=== PATIENT | male | born 1970 | race African-American/Black ===

== ENCOUNTER 2024-10-15 15:43 | Emergency (ER) | payer OTHER, SELFPAY ==
[2024-10-15] VITALS (19 sets, daily range): BP systolic 110–177; BP diastolic 60–89; PULSE 78–104; RESP 20–54; TEMP 37.6–38.6; O2SAT 93–98; BMI 35.2
--- NOTE | 2024-10-15 16:28 | DI.RAD.S_ITS ---
PROCEDURE: XR FOOT LT MIN 3V INDICATIONS: diabetic wound TECHNIQUE: 3 views of the foot were acquired. COMPARISON: None. FINDINGS: Bones: No fractures or dislocations. No suspicious bony lesions. 1st MTP degenerative change, hallux valgus and bunion. No plain film evidence of osteomyelitis. Soft tissues: No tibiotalar joint effusion. Achilles tendon appears normal. Great toe soft tissue swelling centered at the MTP joint with possible associated ulceration in that location. IMPRESSION: Ulceration, soft tissue swelling. No plain film evidence of osteomyelitis. Dictated by: Aditya Austin M.D. on 10/15/2024 at 17:06 Approved by: Aditya Austin M.D. on 10/15/2024 at 17:07
[2024-10-15 16:44] LABS: Add Manual Diff / Slide Review NO; Basophils Absolute Auto 0 /uL (0-100); Basophils Percent Auto 0.2 % (0-2); Eosinophils Absolute Auto 0 /uL (0-450); Eosinophils Percent Auto 0.1 % (2-4); Hematocrit 35.6 % (41-53); Hemoglobin 12.1 g/dL (13.5-17.5); Lymphocytes Absolute Auto 600 /uL (1100-4500); Lymphocytes Percent Auto 4.5 % (25-40); Mean Corpuscular HGB Conc 34.1 % (30-36); Mean Corpuscular Hemoglobin 31.5 PG (26-34); Mean Corpuscular Volume 92.5 fL (80-100); Monocytes Absolute Auto 1500 /uL (0-900); Monocytes Percent Auto 10.9 % (3-14); Neutrophils Absolute Auto 12000 /uL (1500-7000); Neutrophils Percent Auto 84.3 % (50-75); Platelet Count 126 X10^3/uL (150-400); Red Blood Cell Count 3.85 X10^6/uL (4.5-5.9); Red Cell Distribution Width 12.3 % (11.6-14.8); White Blood Cell Count 14.3 X10^3/uL (4.5-11.0)
[2024-10-15] MEDS: SODIUM CHLORIDE 0.9% 1,000 ML 1000 ML IV (16:47)
[2024-10-15] MEDS: ONDANSETRON 4 MG/2 ML INJ IV (16:47)
[2024-10-15] MEDS: cefTRIAXone 2,000 MG in SODIUM CHLORIDE 0.9% 100 ML 200 MG IV (16:48)
[2024-10-15] MEDS: metroNIDAZOLE 500 MG/100 ML PIGGYBACK 100 MG IV (16:48)
[2024-10-15 16:55] LABS: HEMOLYSIS < 15 (0-50)
[2024-10-15 17:00] LABS: Alanine Aminotransferase 31 IU/L (<50); Albumin 4.1 g/dL (3.5-5.0); Alkaline Phosphatase 119 U/L (38-126); Aspartate Aminotransferase 36 IU/L (17-59); BUN Creatinine Ratio 21.1 (6-22); Bilirubin Total 2.3 mg/dL (0.2-1.3); Blood Urea Nitrogen 47 mg/dL (9-20); Calcium 8.7 mg/dL (8.4-10.2); Carbon Dioxide 19 mmol/L (22-32); Chloride 102 mmol/L (98-107); Estimated Glomerular Filt Rate 34 mL/min (>60); Globulin 4.2 g/dL (1.7-4.1); Glucose 190 mg/dL (70-99); Lipase 319 U/L (23-300); Magnesium 1.9 mg/dL (1.6-2.3); Potassium 5.3 mmol/L (3.4-5.1); Sodium 133 mmol/L (137-145); Total Protein 8.3 g/dL (6.3-8.2)
[2024-10-15 17:01] LABS: Lactate (Lactic Acid) 1.3 mmol/L (0.7-2.1)
[2024-10-15 17:09] LABS: NT-proBNP (BNP-Adult 18+) 774 pg/mL (<125)
[2024-10-15 17:13] LABS: Ketones (Beta-Hydroxybutyrate) 0.33 mmol/L (<0.27)
[2024-10-15 17:17] LABS: Procalcitonin 1.27 ng/mL (<0.5)
[2024-10-15] MEDS: ACETAMINOPHEN 325 MG TABLET 975 MG PO ×2 (17:35→22:50)
[2024-10-15] MEDS: VANCOMYCIN 2,000 MG/400 ML PIGGYBACK 200 MG IV (18:09)
--- NOTE | 2024-10-15 18:59 | ED_ITS ---
HPI - Skin/Abscess/Foreign Bdy General Chief complaint: Skin/Abscess/Foreign Body Stated complaint: open wound x 2 days ago, infection, fever N/V Time Seen by Provider: 10/15/24 16:00 Source: patient Mode of arrival: Ambulatory Limitations: no limitations History of Present Illness HPI narrative: Patient is an adult male with a history of diabetes mellitus and hypertension who presents with a recurrent ulcer on the right lower extremity. The ulcer initially developed three years ago, at which time the patient received wound care including debridement and topical therapy. The area subsequently developed a scab and recurrent callus formation. Over the past weekend, after significant walking in hot weather and showering, the scab softened, resulting in the ulcer reopening, becoming swollen, and emitting a foul odor. The patient reports increased swelling and erythema of the left great toe and midfoot, with generalized lower extremity edema (left greater than right). He has not been taking his prescribed diuretic for one to two months, attributing this to lack of prescription renewal, and notes that this typically leads to increased ankle swelling. He denies current alcohol withdrawal symptoms, with last alcohol intake four days ago. The patient was febrile on presentation and has received antibiotics in the emergency department. Pertinent ROS: Positive for fever, swelling, erythema, and foul odor from the ulcer. Denies current alcohol withdrawal symptoms. No mention of other systemic symptoms. Medications: Not currently taking prescribed diuretic (water pill) for one to two months. Past Medical History: Diabetes mellitus, hypertension. Surgical History: History of wound debridement for prior ulceration. Related Data Allergies Allergy/AdvReac Type Severity Reaction Status Date / Time aspirin Allergy Verified 10/15/24 16:26 doxycycline Allergy Verified 10/15/24 16:26 Review of Systems Review of Systems Narrative: Constitutional: fever on presentation. HEENT: no complaints reported. Cardiovascular: no complaints reported. Respiratory: no complaints reported. Gastrointestinal: denies known liver disease. Genitourinary: denies known kidney disease. Musculoskeletal: swelling and erythema of left great toe and midfoot, bilateral lower extremity edema (left greater than right). Skin: recurrent ulceration of right lower extremity with foul odor, swelling, and erythema. Neurological: denies alcohol withdrawal symptoms. Psychiatric: no complaints reported. ROS Unobtainable: All systems reviewed & are unremarkable except as noted in HPI and below Patient History Social History Smoking Status: Never smoker Smoking Status: Never smoker Alcohol type: beer Exam Narrative Exam Narrative: General: Well-perfused. Skin: Significant swelling of left great toe with ulceration on the plantar aspect, surrounding erythema, and purulence; erythema and swelling extend to the midfoot; generalized bilateral lower extremity edema, left greater than right. Head: Normocephalic, atraumatic HEENT: Conjunctiva clear, EOM intact, PERRL, Mucous membranes moist. Neck: Supple, normal ROM Heart: Regular rate and rhythm, no murmur or gallop or rubs Lungs: Clear to auscultation. No rales rhonchi or wheezes. Abdomen: Soft and nontender. Bowel sounds normal. No mass or hernia Back: Spine normal without deformity or tenderness, no CVA tenderness Extremities: No other toes affected. Peripheral pulses intact. Neurologic: CN 2-12 normal. Normal sensation and motor exam. Psychiatric: Oriented X3. normal mood and affect. Initial Vital Signs Initial Vital Signs: Vital Signs Temperature 99.7 F H 10/15/24 15:55 Pulse Rate 103 H 10/15/24 15:55 Respiratory Rate 20 10/15/24 15:55 Blood Pressure 147/73 H 10/15/24 15:55 Pulse Oximetry 97 10/15/24 15:55 Oxygen Delivery Method Room Air 10/15/24 15:55 Course Orders Ordered: ED Orders 10/15/24 16:28 XR foot LT min 3V Stat Urinalysis and Microscopic Stat 10/15/24 16:34 Complete Blood Count AUTO DIFF Stat Comprehensive Metabolic Panel Stat Ketones (Beta-Hydroxybutyrate) Stat Lactate (Lactic Acid) Stat Lipase Stat Magnesium Stat NT-proBNP (BNP-Adult 18+) Stat Procalcitonin Stat 10/15/24 16:50 Blood Culture Stat Discontinued Medications Acetaminophen (Acetaminophen 325 Mg Tablet) 975 mg PO NOW ONE Stop: 10/15/24 17:30 Last Admin: 10/15/24 17:35 Dose: 975 mg Documented By: MARGARET Acetaminophen (Acetaminophen 325 Mg Tablet) 975 mg PO NOW ONE Stop: 10/15/24 22:45 Last Admin: 10/15/24 22:50 Dose: 975 mg Documented By: MARGARET Sodium Chloride (Normal Saline 0.9%) 1,000 mls @ 1,000 mls/hr IV BOLUS ONE Stop: 10/15/24 17:27 Last Infusion: 10/15/24 18:38 Dose: Infused Documented By: Admin: 10/15/24 16:47 Dose: 1,000 mls/hr Documented By: KAREL Ceftriaxone Sodium 2,000 mg/ (Sodium Chloride) 100 mls @ 200 mls/hr IV NOW ONE Stop: 10/15/24 16:29 Last Infusion: 10/15/24 17:36 Dose: Infused Documented By: Admin: 10/15/24 16:48 Dose: 200 mls/hr Documented By: KAREL Metronidazole (Flagyl) 500 mg in 100 mls @ 100 mls/hr IV NOW ONE Stop: 10/15/24 17:27 Last Infusion: 10/15/24 18:09 Dose: Infused Documented By: Admin: 10/15/24 16:48 Dose: 100 mls/hr Documented By: KAREL Vancomycin HCl/Dextrose (Vancomycin) 2,000 mg in 400 mls @ 200 mls/hr IV NOW ONE Stop: 10/15/24 18:42 Last Infusion: 10/15/24 20:14 Dose: Infused Documented By: Admin: 10/15/24 18:09 Dose: 200 mls/hr Documented By: MARGARET Ondansetron HCl (Ondansetron 4 Mg/2 Ml Inj) 4 mg IV NOW ONE Stop: 10/15/24 16:29 Last Admin: 10/15/24 16:47 Dose: 4 mg Documented By: KAREL Vancomycin HCl (Vancomycin Per Pharmacy) 1 request MISC NOW ONE Stop: 10/15/24 16:31 Last Admin: 10/15/24 18:20 Dose: Not Given Documented By: MARGARET Vital Signs Vital signs: Vital Signs - 8 hr 10/15/24 17:03 10/15/24 17:03 10/15/24 17:29 Temperature 101.5 F H Pulse Rate 104 H Respiratory Rate Blood Pressure 134/69 Pulse Oximetry 98 10/15/24 17:30 10/15/24 17:30 10/15/24 17:35 Temperature 101.5 F H Pulse Rate 100 H Respiratory Rate Blood Pressure 177/87 H Pulse Oximetry 96 10/15/24 18:00 10/15/24 18:00 10/15/24 18:30 Temperature Pulse Rate 98 H 94 H Respiratory Rate 21 Blood Pressure 169/89 H Pulse Oximetry 94 95 10/15/24 18:30 10/15/24 18:37 10/15/24 19:00 Temperature 100.5 F H Pulse Rate Respiratory Rate Blood Pressure 159/81 H 147/65 H Pulse Oximetry 10/15/24 19:00 10/15/24 19:30 10/15/24 19:30 Temperature Pulse Rate 97 H 92 H Respiratory Rate 54 H Blood Pressure 137/62 Pulse Oximetry 96 94 10/15/24 20:00 10/15/24 20:00 10/15/24 20:30 Temperature Pulse Rate 87 84 Respiratory Rate 27 H 31 H Blood Pressure 130/62 Pulse Oximetry 93 96 10/15/24 20:30 10/15/24 21:00 10/15/24 21:00 Temperature Pulse Rate 83 Respiratory Rate 30 H Blood Pressure 132/60 126/63 Pulse Oximetry 97 10/15/24 21:30 10/15/24 21:30 10/15/24 22:00 Temperature Pulse Rate 78 92 H Respiratory Rate 32 H Blood Pressure 113/61 Pulse Oximetry 94 96 10/15/24 22:00 10/15/24 22:30 10/15/24 22:30 Temperature 101.1 F H Pulse Rate 79 Respiratory Rate Blood Pressure 110/76 140/70 Pulse Oximetry 93 10/15/24 22:50 Temperature 101.1 F H Pulse Rate Respiratory Rate Blood Pressure Pulse Oximetry MDM - Skin/Abscess/Foreign Bdy Lab Data Lab results narrative: I reviewed patient's labs which are concerning for leukocytosis at 14.3 but no significant anemia or thrombocytopenia patient has mildly elevated potassium at 5.3 as well as a creatinine of 2.23 with unclear baseline. Most recent creatinine appears to be 0.9 however lab work was from over 2 years ago. Patient's blood glucose is not significantly elevated at this time lower suspicion for DKA, patient has reassuring lactic acid level at 1.3 and elevated procalcitonin level concerning for infection. 10/15/24 16:34 10/15/24 16:34 Labs: Lab Results 10/15/24 Range/Units 16:34 WBC 14.3 H (4.5-11.0) X10^3/uL RBC 3.85 L (4.5-5.9) X10^6/uL Hgb 12.1 L (13.5-17.5) g/dL Hct 35.6 L (41-53) % MCV 92.5 (80-100) fL MCH 31.5 (26-34) PG MCHC 34.1 (30-36) % RDW 12.3 (11.6-14.8) % Plt Count 126 L (150-400) X10^3/uL Neut % (Auto) 84.3 H (50-75) % Lymph % (Auto) 4.5 L (25-40) % [place] % (Auto) 10.9 (3-14) % Eos % (Auto) 0.1 L (2-4) % Baso % (Auto) 0.2 (0-2) % Neut # (Auto) 47478 H (1437-2433) /uL Lymph # (Auto) 600 L (5213-3068) /uL [place] # (Auto) 1500 H (0-900) /uL Eos # (Auto) 0 (0-450) /uL Baso # (Auto) 0 (0-100) /uL Sodium 133 L (137-145) mmol/L Potassium 5.3 H (3.4-5.1) mmol/L Chloride 102 (98-107) mmol/L Carbon Dioxide 19 L (22-32) mmol/L BUN 47 H (9-20) mg/dL Creatinine 2.23 H (0.66-1.25) mg/dL Estimated GFR 34 L (>60) mL/min BUN/Creatinine Ratio 21.1 (6-22) Glucose 190 H (70-99) mg/dL Lactate 1.3 (0.7-2.1) mmol/L Calcium 8.7 (8.4-10.2) mg/dL Magnesium 1.9 (1.6-2.3) mg/dL Total Bilirubin 2.3 H (0.2-1.3) mg/dL AST 36 (17-59) IU/L ALT 31 (<50) IU/L Alkaline Phosphatase 119 (38-126) U/L NT-Pro-B Natriuret Pep 774 H (<125) pg/mL Total Protein 8.3 H (6.3-8.2) g/dL Albumin 4.1 (3.5-5.0) g/dL Globulin 4.2 H (1.7-4.1) g/dL Albumin/Globulin Ratio 1.0 (1.0-2.8) Lipase 319 H (23-300) U/L Procalcitonin 1.27 H (<0.5) ng/mL Ketones 0.33 H (<0.27) mmol/L Imaging Data Extremity x-ray #1: My Impression: No fractures identified Radiologist's Impression: Bones: No fractures or dislocations. No suspicious bony lesions. 1st MTP degenerative change, hallux valgus and bunion. No plain film evidence of osteomyelitis. Soft tissues: No tibiotalar joint effusion. Achilles tendon appears normal. Great toe soft tissue swelling centered at the MTP joint with possible associated ulceration in that location. IMPRESSION: Ulceration, soft tissue swelling. No plain film evidence of osteomyelitis. MDM Narrative Medical decision making narrative: INITIAL EVALUATION AND PLAN: - Plan: - Continue intravenous antibiotics - Intravenous fluids - Arrange transfer to higher-level facility for surgical evaluation and possible operative debridement - Ongoing wound care Differential Diagnoses: Cellulitis, Abscess, Osteomyelitis, Necrotizing fasciitis, Diabetic foot ulcer infection, Deep vein thrombosis (DVT) Complexity of Problems Addressed: 1. Clinical Factors: - Recurrent ulcer on the left lower extremity emitting a foul odor, associated with swelling and erythema. - Severe soft tissue infection of the left great toe and midfoot with generalized lower extremity edema. - High risk of complications due to diabetes mellitus, including poor healing and increased susceptibility to infection. 2. External Information Sources: - History provided by the patient regarding the progression of the ulcer and lack of diuretic use. 3. Historians: - Patient self-reported history of ulcer recurrence and medication noncompliance. Patient initially tachycardic, febrile received IV antibiotics and fluids in the emergency department with improvement in clinical condition. Patient's imaging fortunately showed no signs of osteomyelitis or gas within the foot however clinically he appears to have fairly significant ulceration in the foot, suspect he will need Podiatry, orthopedics or vascular surgery Services for debridement and further management. Considered CT imaging however patient's wound has been there for several weeks slowly progressive and I have lower suspicion for a necrotizing soft tissue infection. Consulted with vascular surgery at [facility] who did not believe patient needs any acute procedures at this time but agree he likely will need to be evaluated for potential debridement, discussed the case with hospitalist who accepts patient's admission for ongoing IV antibiotics and podiatry/vascular surgery consultation. Mild elevation in potassium, mild elevation in creatinine with unknown previous patient received fluid, we will plan to recheck labs if patient has been prolonged time in the emergency department for further evaluation. Discharge Plan Departure Patient Disposition: [facility] Clinical Impression: Diabetic foot infection
[2024-10-16] VITALS: BP 141/68; PULSE 92; RESP 30; O2SAT 95
[2024-10-16 00:19] VITALS: TEMP 37.7
[2024-10-16 00:30] VITALS: BP 117/59; PULSE 87; RESP 24; O2SAT 94
[2024-10-16 00:31] VITALS: TEMP 37.7
== END 2024-10-16 00:55 | disposition short-term general hospital (02) ==
PROVIDERS: Emergency Medicine; Emergency Provider Emergency Medicine
DX: E11.628 Type 2 diabetes mellitus with other skin complications (principal); R50.9 Fever, unspecified
CPT/HCPCS: 36415; 73630; 80053; 82009; 83605; 83690; 83735; 83880; 84145; 85025; 87040; 96365; 96366; 96367; 96368; 96375; 99284; J0696; J2405